=== PATIENT | female | born 1945 | race Caucasian/White ===

== ENCOUNTER 2017-06-20 09:48 | Emergency (ER) | payer OTHER ==
[~2017-06-20] VITALS: Ht 162.6 cm; Wt 77.1 kg
[~2017-06-20 09:48] MED LIST: ADVAIR 100-501 EACH IH; CARAFATE1 G PO; FLUCONAZOLE100 MG PO; INTESTINEX680 MG PO; PREDNISONE10 MG PO; PROTONIX40 MG PO; SIMVASTATIN40 MG PO; SINGULAIR 10MG10 MG PO; SINGULAIR10 MG PO; ZANTAC150 MG PO
[2017-06-20] MEDS ORDERED: NEURONTIN800 MG PO (11:14)
[2017-06-20] MEDS ORDERED: BUDEO.25 IH (11:15)
[2017-06-20] MEDS ORDERED: LEVALBUTER0.31 MG/3 IH (11:15)
== END 2017-06-20 15:26 | disposition home or self-care (01) ==
LOC: ER 09:48
DX: J06.9 Acute upper respiratory infection, unspecified (principal); J11.1 Influenza due to unidentified influenza virus with other respiratory manifestations

== ENCOUNTER 2020-06-24 06:20 | Inpatient (IN) | payer OTHER ==
[~2020-06-24] VITALS: Ht 162.6 cm; Wt 79.4 kg
[~2020-06-24 06:20] MED LIST changes: +BUDEO.25 IH; +LEVALBUTER0.31 MG/3 IH; +NEURONTIN800 MG PO
[2020-06-24] MEDS ORDERED: ALENDRONATE SOD70 MG (14:00)
[2020-06-26] MEDS ORDERED: DUI500 PO (15:37)
[2020-06-26] MEDS ORDERED: PERCOCET 5-3251 EACH PO (15:37)
[2020-06-26] MEDS ORDERED: ELIQUIS2.5 MG PO (15:37)
== END 2020-06-26 21:17 | DRG 470 ==
LOC: CIR.AMB 06:20 → SURH 13:58 → O/R 13:58 → SURH 06-25 13:46
PROVIDERS: ADMIT Orthopaedic Surgery; ATTEND Orthopaedic Surgery
PROC: 0SRD0J9 Replacement of Left Knee Joint with Synthetic Substitute, Cemented, Open Approach (ICD-10-PCS; principal; 2020-06-24 12:00)
DX: M17.12 Unilateral primary osteoarthritis, left knee (principal); D62 Acute posthemorrhagic anemia; J43.9 Emphysema, unspecified; E11.65 Type 2 diabetes mellitus with hyperglycemia

== ENCOUNTER 2024-06-01 17:46 | Emergency (ER) | payer OTHER ==
[~2024-06-01] VITALS: Ht 162.6 cm; Wt 81.6 kg
[~2024-06-01 17:46] MED LIST changes: +ALENDRONATE SOD70 MG; +DUI500 PO; +ELIQUIS2.5 MG PO; +PERCOCET 5-3251 EACH PO
[2024-06-01] MEDS ORDERED: GUAIFENESIN 200 MG/10 ML BLIST.PACK PO STA (19:28)
[2024-06-01] MEDS ORDERED: GUAIFENESIN 200 MG/10 ML BLIST.PACK PO ONE (20:01)
[2024-06-01] MEDS ORDERED: KETOROLAC TROMETHAMINE 30 MG VIAL IM STA (21:22)
[2024-06-01] MEDS ORDERED: KETOROLAC TROMETHAMINE 30 MG VIAL ONE (21:26)
== END 2024-06-01 21:30 | disposition home or self-care (01) ==
LOC: ER 17:49
DX: J00 Acute nasopharyngitis [common cold] (principal); R05.9 Cough, unspecified; Z20.822 Contact with and (suspected) exposure to COVID-19; Z91.013 Allergy to seafood
CPT/HCPCS: 36415; 96372; 99282; J1885